=== PATIENT | female | born 1990 | race Two or more races ===

== ENCOUNTER 2020-12-26 19:01 | Emergency (ER) | payer MEDICAID, OTHER ==
[~2020-12-26] VITALS: Ht 157.5 cm; Wt 77.6 kg
[2020-12-26 19:35] LABS: Urine Bacteria NONE SEEN /hpf (None Seen); Urine Blood TRACE /uL (Negative); Urine Mucus FEW (None Seen); Urine Specific Gravity 1.013 (1.001-1.035); Urine WBC 1 /hpf (0 - 5)
[2020-12-26 21:10] VITALS: BP 120/68
== END 2020-12-26 21:38 | disposition home or self-care (01) ==
LOC: ER 19:02
DX: K76.0 Fatty (change of) liver, not elsewhere classified (principal); K80.20 Calculus of gallbladder without cholecystitis without obstruction
CPT/HCPCS: 76705; 81001

== ENCOUNTER 2023-11-21 07:30 | Inpatient (IN) | payer MEDICAID ==
[~2023-11-21] VITALS: Ht 157.5 cm; Wt 81.6 kg
[2023-11-21] MEDS ORDERED: LACT. RINGERS/OXYTOCIN 20UNITS 1,000 ML IV SCH (07:45)
[2023-11-21] MEDS ORDERED: PHISODERM TOP SOLN 240ML BTL TOP PRN (07:45)
[2023-11-21] MEDS ORDERED: LACTATED RINGER'S 1,000 ML IV SCH (07:45)
[2023-11-21] MEDS ORDERED: miSOPROStol 50 MCG per PRE-CUT 1/2 TAB PO PRN (07:45)
[2023-11-21] MEDS ORDERED: DERMOPLAST 60ML BOTTLE TOP PRN (07:45)
[2023-11-21] MEDS ORDERED: PENICILLIN G POT 5MIL/D5 50ML 50 ML IV ONE (07:45)
[2023-11-21] MEDS ORDERED: WITCH HAZEL-GLYCERIN PAD TOP PRN (07:45)
[2023-11-21] MEDS ORDERED: LIDOCAINE 2%HCL (LOCAL ANESTH.) INJ 20ML MDV IJ PRN (07:45)
[2023-11-21 08:16] LABS: Urine Bacteria None Seen /hpf (None Seen)
[2023-11-21 08:26] LABS: Basophils # (auto) 0 10 ^3/uL (0-0.2); Basophils % (auto) 0.2 % (0.0-2.0); Eosinophils # (auto) 0.1 10 ^3/uL (0-0.8); Eosinophils % (auto) 0.7 % (0.0-7.0); Lymphocytes # (auto) 1.8 10 ^3/uL (0.4-5.4); Lymphocytes % (auto) 16.3 % (10.0-50.0); Mean Corpuscular Hemoglobin 27.7 pg (28.0-32.0); Mean Corpuscular Hgb Conc. 34.3 g/dL (32.0-36.0); Mean Corpuscular Volume 80.8 fL (80.0-100.0); Monocytes # (auto) 0.8 10 ^3/uL (0-1.3); Monocytes % (auto) 7.5 % (0.0-12.0); Neutrophils # (auto) 8.4 10 ^3/uL (1.6-8.6); Neutrophils % (auto) 75.3 % (37.0-80.0); Red Blood Cells 4.34 10^6/uL (4.0-5.20); Red Cell Distribution Width 14.2 % (11.8-14.3); White Blood Cell 11.1 10^3/uL (4.4-10.8)
[2023-11-21] MEDS ORDERED: miSOPROStol 100 mcg TAB SL PRN (08:30)
[2023-11-21] MEDS ORDERED: METHYLERGONOVINE MALEATE 0.2 MG/ML AMP IM PRN (08:30)
[2023-11-21 08:41] LABS: Urine Blood Negative /uL (Negative); Urine Clarity Clear (Clear); Urine Color Light-Yellow (Yellow); Urine Mucus FEW (None Seen); Urine Protein, UAD Negative (Negative); Urine Specific Gravity 1.016 (1.001-1.035); Urine Urobilinogen Normal (Negative); Urine WBC 1 /hpf (0 - 5)
[2023-11-21 08:53] LABS: INR 0.9 (0.9-1.15); Partial Thromboplastin Time 27.6 SEC (24.5-34.5); Prothrombin Time 9.6 sec (9.3-11.8)
[2023-11-21 08:54] LABS: Amphetamine Screen, Urine Neg (NEGATIVE)
[2023-11-21 08:56] LABS: Alkaline Phosphatase 138 U/L (46-116); Anion Gap 10 (5-15); Aspartate Aminotransferase 10 U/L (13-40); BUN/Creatinine Ratio 10.4 (10.0-20.0); Bilirubin, Total 0.4 mg/dL (0.2-1.0); Blood Urea Nitrogen 5 mg/dL (9-23); Calcium 9.1 mg/dL (8.7-10.4); Carbon Dioxide 22 mmol/L (20-30); Chloride 106 mmol/L (98-107); Glucose 81 mg/dL (74-106); Potassium 3.6 mmol/L (3.5-5.1); Sodium 138 mmol/L (136-145); Total Protein 6.5 g/dL (5.7-8.2)
[2023-11-21 08:56] LABS: Barbiturate Scree,Urine Neg (NEGATIVE); Benzodiazephine Screen, Urine Neg (NEGATIVE); Cannabinoid Screen, Urine Neg (NEGATIVE); Cocaine Screen, Urine Neg (NEGATIVE); Opiate Scree,Urine Neg (NEGATIVE); Phencyclidine Screen, Urine Neg (NEGATIVE)
[2023-11-21 08:57] LABS: Alanine Aminotransferase < 9 U/L (7-40)
[2023-11-21] MEDS: LACT. RINGERS/OXYTOCIN 20UNITS 500 ML IV ONE ×2 (09:35→09:37)
[2023-11-21] MEDS ORDERED: ONDANSETRON ODT 4 MG TAB PO PRN (10:00)
[2023-11-21] MEDS ORDERED: ACETAMINOPHEN 325 MG TAB PO PRN (10:00)
[2023-11-21] MEDS: IBUPROFEN 600 MG TAB PO PRN (10:23)
[2023-11-21 11:00] VITALS: BP_SYST 112; BP_DIAS 76; BP_DIAS 78; PULSE 80; PULSE 86; RESP 16; TEMP 98.6; O2SAT 95; O2SAT 97
[2023-11-21] MEDS ORDERED: PENICILLIN G POTASSIUM 2,500,000 UNITS in D5W 5% 50 ML IV SCH (11:45)
[2023-11-21 15:00] VITALS: BP_SYST 112; BP_SYST 116; BP_DIAS 72; BP_DIAS 78; PULSE 100; PULSE 112; RESP 16; TEMP 98.4; TEMP 98.6; O2SAT 95; O2SAT 98
[2023-11-21 19:00] VITALS: BP 115/66; PULSE 84; RESP 16; TEMP 98.3; O2SAT 98
[2023-11-21] MEDS ORDERED: PREN-96 PO (21:51)
[2023-11-21] MEDS ORDERED: IBU600T PO (21:51)
[2023-11-21] MEDS ORDERED: DOCU-94 PO (21:51)
[2023-11-21 23:00] VITALS: BP 102/62; PULSE 81; RESP 16; TEMP 98.7; O2SAT 98
[2023-11-22 03:00] VITALS: BP 116/70; PULSE 79; RESP 16; TEMP 98.3; O2SAT 98
[2023-11-22 06:07] LABS: RPR Non Reactive (Non Reactive)
[2023-11-22 07:00] VITALS: BP 123/71; PULSE 75; RESP 20; TEMP 98.8; O2SAT 98
[2023-11-22 08:44] LABS: Basophils # (auto) 0 10 ^3/uL (0-0.2); Basophils % (auto) 0.1 % (0.0-2.0); Eosinophils # (auto) 0.1 10 ^3/uL (0-0.8); Eosinophils % (auto) 0.9 % (0.0-7.0); Hematocrit 32.3 % (36.0-46.0); Hemoglobin 10.9 g/dL (12.2-16.2); Lymphocytes # (auto) 2.1 10 ^3/uL (0.4-5.4); Mean Corpuscular Hemoglobin 27.5 pg (28.0-32.0); Mean Corpuscular Hgb Conc. 33.7 g/dL (32.0-36.0); Mean Corpuscular Volume 81.6 fL (80.0-100.0); Monocytes # (auto) 0.8 10 ^3/uL (0-1.3); Monocytes % (auto) 8.1 % (0.0-12.0); Neutrophils % (auto) 69.9 % (37.0-80.0); Red Blood Cells 3.96 10^6/uL (4.0-5.20); Red Cell Distribution Width 14.2 % (11.8-14.3); White Blood Cell 10.1 10^3/uL (4.4-10.8)
[2023-11-22 11:20] VITALS: BP 125/70; PULSE 97; RESP 16; TEMP 98.5; O2SAT 98
== END 2023-11-22 12:54 | disposition home or self-care (01) | DRG 560 ==
LOC: LDRP 07:30
PROVIDERS: ADMIT Obstetrics & Gynecology; ATTEND Obstetrics & Gynecology
PROC: 10E0XZZ Delivery of Products of Conception, External Approach (ICD-10-PCS; principal; 2023-11-21)
PROC: 0UQMXZZ Repair Vulva, External Approach (ICD-10-PCS; 2023-11-21)
DX: O48.0 Post-term pregnancy (principal); Z37.0 Single live birth; O71.82 Other specified trauma to perineum and vulva; Z3A.40 40 weeks gestation of pregnancy
CPT/HCPCS: 36415; 59025; 59409; 80053; 80307; 81001; 85025; 85610; 85730; 86592; 86803; 86850; 86900; 86901; 94760; 96360; 96365; 96366; G0378; J2590; J7060